=== PATIENT | male | born 2000 | race Two or more races ===

== ENCOUNTER → 2024-07-11 | Emergency (ER) | payer OTHER ==
[~2024-07-11] VITALS: Ht 180.3 cm; Wt 97.5 kg
[~2024-07-11] MED LIST: CEFAZOLIN SODIUM 1,000 MG VIAL IV STA; CEFAZOLIN SODIUM 1,000 MG VIAL ONE; COZAAR25 MG; KEPPRA100 MG/1 M; KETOROLAC TROMETHAMINE 60 MG VIAL IM ONE; KETOROLAC TROMETHAMINE 60 MG VIAL IM STA; POVIDONE-IODINE 118 ML BOTT TOP ONE
== END | disposition home or self-care (01) ==
LOC: ER 08:12
DX: L02.415 Cutaneous abscess of right lower limb (principal); L02.91 Cutaneous abscess, unspecified; I10 Essential (primary) hypertension
CPT/HCPCS: 96365; 96372; 99282; J0690; J1885